=== PATIENT | male | born 1955 | race Caucasian/White ===

== ENCOUNTER 2023-10-06 11:39 | Emergency (ER) | payer MEDICARE, OTHER, SELFPAY ==
[2023-10-06 11:52] VITALS: BP 135/78; PULSE 50; RESP 15; O2SAT 99
[2023-10-06 11:54] VITALS: BP 135/78; PULSE 50; RESP 14; TEMP 36.2; O2SAT 99; BMI 25.8
[2023-10-06 12:00] VITALS: PULSE 50; RESP 14; O2SAT 100
[2023-10-06 12:01] VITALS: BP 132/79; PULSE 51; RESP 15; O2SAT 100
[2023-10-06 12:30] VITALS: PULSE 63; RESP 25
[2023-10-06 12:45] LABS: Add Manual Diff / Slide Review NO; Basophils Absolute Auto 0 /uL (0-100); Basophils Percent Auto 0.5 % (0-2); Eosinophils Absolute Auto 100 /uL (0-450); Eosinophils Percent Auto 0.9 % (2-4); Hemoglobin 14.8 g/dL (13.5-17.5); Lymphocytes Absolute Auto 1300 /uL (1100-4500); Mean Corpuscular HGB Conc 34.4 % (30-36); Mean Corpuscular Volume 93.2 fL (80-100); Monocytes Absolute Auto 400 /uL (0-900); Monocytes Percent Auto 6.6 % (3-14); Neutrophils Absolute Auto 4600 /uL (1500-7000); Platelet Count 188 X10^3/uL (150-400); Red Blood Cell Count 4.61 X10^6/uL (4.5-5.9); Red Cell Distribution Width 12.5 % (11.6-14.8); White Blood Cell Count 6.4 X10^3/uL (4.5-11.0)
--- NOTE | 2023-10-06 12:48 | ED_ITS ---
HPI - Weakness General Chief complaint: Weakness Stated complaint: fall x2, blood in urine Time Seen by Provider: 10/06/23 12:00 Source: patient, family and police Mode of arrival: Wheelchair History of Present Illness HPI Narrative: Patient is a 67-year-old male with advanced dementia currently enrolled in palliative care here with his and son who are caregivers but they also have caregivers in the home presenting today with increasing falls and more screaming. Son stays he has had escalation of behavior and screaming over the last 6 months. Over the last 2 days I noted that maybe he falls more. His right leg is significantly shorter than his left this has been ongoing issue is whole life. He has previously had UTIs. He has been on Keflex in July and looks like amoxicillin in September reports that they never did a urinalysis it was just presumed it a UTI. He has been on risperidone quetiapine other antipsychotics however family does not like the antipsychotics because they make him ?a zombie.They report that he frequently has constipation issues he takes MiraLax daily they say that after he poop sees generally better for a couple of days. It was recommended that they come to the emergency department today because he seems to be limping a little bit more and falling. Patient is currently screaming, family does not want sedating medications given they are sometimes able to redirect him Related Data Previous Rx's Medication Instructions Recorded cephalexin 500 mg capsule 500 mg PO BID 7 days #14 caps 10/06/23 lactulose 10 gram/15 mL oral 10 g (15 mL) PO DAILY PRN 10/06/23 solution constipation #237 mL Allergies Allergy/AdvReac Type Severity Reaction Status Date / Time quetiapine [From Seroquel] AdvReac Severe Numbness Verified 10/06/23 11:59 risperidone AdvReac Severe Numbness Verified 10/06/23 11:59 Patient History Medical History Dementia Social History Smoking Status: Never smoker Smoking Status: Never smoker alcohol intake frequency: 0-2 drinks per day Substance Use Type: does not use Exam Initial Vital Signs Initial Vital Signs: Vital Signs Pulse Rate 50 L 10/06/23 11:52 Respiratory Rate 15 10/06/23 11:52 Blood Pressure 135/78 10/06/23 11:52 Pulse Oximetry 99 10/06/23 11:52 GENERAL: Alert agitated 67-year-old male, intermittently screaming HEENT: Head atraumatic,EOMI, pupils reactive, face symmetric, CARDIOVASCULAR: Peripheral pulses intact RESPIRATORY: No respiratory distress ABDOMEN: Soft, nontender. Normoactive bowel sounds all 4 quadrants. No guarding or rebound. No significant distention EXTREMITIES: Normal range of motion, no clubbing or edema. Neurovascularly intact Right knee small abrasion no gross bony deformity able to stand and ambulate along with weightbear NEUROLOGICAL: Moving all extremities SKIN: Warm, dry, no laceration, no petechiae, no rashes or lesions. Course Orders Ordered: Discontinued Medications Ketorolac Tromethamine (Ketorolac 30 Mg/Ml Vial) 15 mg IV NOW ONE Stop: 10/06/23 13:08 Last Admin: 10/06/23 13:12 Dose: 15 mg Documented By: OW Vital Signs Vital signs: Vital Signs - 8 hr 10/06/23 11:52 10/06/23 11:52 10/06/23 11:54 Temperature 97.1 F L Pulse Rate 50 L 50 L Respiratory Rate 15 14 Blood Pressure 135/78 135/78 Pulse Oximetry 99 99 Oxygen Delivery Method Room Air 10/06/23 12:00 10/06/23 12:01 10/06/23 12:01 Temperature Pulse Rate 50 L 51 L Respiratory Rate 14 15 Blood Pressure 132/79 Pulse Oximetry 100 100 Oxygen Delivery Method Room Air MDM - Weakness Lab Data 10/06/23 12:15 10/06/23 12:15 Labs: Lab Results 10/06/23 10/06/23 Range/Units 12:15 12:35 WBC 6.4 (4.5-11.0) X10^3/uL RBC 4.61 (4.5-5.9) X10^6/uL Hgb 14.8 (13.5-17.5) g/dL Hct 43.0 (41-53) % MCV 93.2 (80-100) fL MCH 32.0 (26-34) PG MCHC 34.4 (30-36) % RDW 12.5 (11.6-14.8) % Plt Count 188 (150-400) X10^3/uL Neut % (Auto) 72.0 (50-75) % Lymph % (Auto) 20.0 L (25-40) % [place] % (Auto) 6.6 (3-14) % Eos % (Auto) 0.9 L (2-4) % Baso % (Auto) 0.5 (0-2) % Neut # (Auto) 4600 (1296-4169) /uL Lymph # (Auto) 1300 (0513-0137) /uL [place] # (Auto) 400 (0-900) /uL Eos # (Auto) 100 (0-450) /uL Baso # (Auto) 0 (0-100) /uL Sodium 140 (137-145) mmol/L Potassium 3.9 (3.4-5.1) mmol/L Chloride 107 (98-107) mmol/L Carbon Dioxide 31 (22-32) mmol/L BUN 15 (9-20) mg/dL Creatinine 0.79 (0.66-1.25) mg/dL Estimated GFR > 60 (>60) mL/min BUN/Creatinine Ratio 19.0 (6-22) Glucose 97 (80-110) mg/dL Calcium 9.2 (8.4-10.2) mg/dL Total Bilirubin 0.7 (0.2-1.3) mg/dL AST 31 (17-59) IU/L ALT 26 (<50) IU/L Alkaline Phosphatase 53 (38-126) U/L Total Protein 6.7 (6.3-8.2) g/dL Albumin 4.0 (3.5-5.0) g/dL Globulin 2.7 (1.7-4.1) g/dL Albumin/Globulin Ratio 1.5 (1.0-2.8) Lipase 146 (23-300) U/L Urine RBC 0-1/hpf (0-5/HPF) Urine WBC 1-5/hpf (0-5/HPF) Ur Squamous Epith Cells 0-1 /hpf (0-5/HPF) Amorphous Sediment 1+ Urine Bacteria Few (2-10) H (None) Urine Mucus 1+ H (Negative) Ur Culture Indicated? Specimen cultured Vol Urine Centrifuged 10ml (spun) Urine Dip Bedside Urine Glucose Negative Bedside Urine Bilirubin - Negative Bedside Urine Ketone - Negative Urine Specific [place] 1.010 Bedside Urine Occult Blood +/- Bedside Urine pH 7.5 Bedside Urine Protein + 30 Bedside Urine Urobilinogen - Negative Bedside Urine Nitrite - Negative Bedside Urine Leukocytes +/- 15 Esterase MDM Narrative Medical decision making narrative: Patient 77-year-old male advanced dementia arm palliative care with caregiver presenting today with increasing falls weakness. Family hesitant to give him any sort of sedation initially had CT and x-rays ordered however not able to do so because of agitation. They understand that there may be explanation or life- threatening cause found but they do not want life-saving interventions, which is very reasonable Patient does have a UTI he has bacteria and leukocytes in his urine he has not septic he has no leukocytes no WALT he is given Toradol in the ED for pain through an IV Discharge Plan Departure Patient Disposition: Home Clinical Impression: Acute UTI Instructions: DI for Urinary Tract Infection (UTI) Activity Restrictions/Additional Instructions: *You have been diagnosed with UTI *What to do: At this time blood work is actually overall reassuring. He does have a minor bladder infection which might be causing some of his problems *Continue to take medications as directed Keflex 500 mg twice a day for 7 days Lactulose daily only if needed for severe constipation *Follow up with your primary care provider in 2-3 days or call [phone] *Return to ER if you should have any new, worsening or concerning symptoms Prescriptions: New cephalexin 500 mg capsule 500 mg PO BID 7 Days Qty: 14 0RF lactulose 10 gram/15 mL solution 10 g PO DAILY PRN (Reason: constipation) Qty: 237 0RF Referrals: Ras Velasquez MD [Primary Care Provider] - Stand Alone Forms: Patient Portal/API
[2023-10-06 13:03] LABS: Alanine Aminotransferase 26 IU/L (<50); Albumin Globulin Ratio 1.5 (1.0-2.8); Alkaline Phosphatase 53 U/L (38-126); Aspartate Aminotransferase 31 IU/L (17-59); Bilirubin Total 0.7 mg/dL (0.2-1.3); Blood Urea Nitrogen 15 mg/dL (9-20); Calcium 9.2 mg/dL (8.4-10.2); Carbon Dioxide 31 mmol/L (22-32); Chloride 107 mmol/L (98-107); Estimated Glomerular Filt Rate > 60 mL/min (>60); Globulin 2.7 g/dL (1.7-4.1); Glucose 97 mg/dL (80-110); HEMOLYSIS 22 (0-50); Lipase 146 U/L (23-300); Potassium 3.9 mmol/L (3.4-5.1); Sodium 140 mmol/L (137-145); Total Protein 6.7 g/dL (6.3-8.2)
[2023-10-06 13:10] LABS: Amorphous Sediment Urine 1+; Bacteria Urine Few (2-10); Culture Indicated Urine Specimen Cultured; Mucus Urine 1+ (Negative); RBC Urine 0-1/HPF (0-5/HPF); Squamous Epithelial Cell Urine 0-1 /HPF (0-5/HPF); Urine Volume 10mL (spun); WBC Urine 1-5/HPF (0-5/HPF)
[2023-10-06] MEDS: KETOROLAC 30 MG/ML VIAL 15 MG IV (13:12)
--- NOTE | 2023-10-06 13:26 | PC.NURSE ---
1300: Pt agitated and allowed to walk around room with one person assist and gait belt. pt will occasionally swat at staff and family. Pt yelling randomly and does not respond to questions about pain or discomfort. Pt only yells and occasionally states one word phrases. Pt's spouse/caregiver reports that this yelling waxes and wanes and will stop for days at a time and then roll picker again for hours. this has been happening for months and the cause is unknown. 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 L knee is bruised from a recent fall. Pt's spouse witnessed fall and it was an assist tog round with no trauma to head or neck.
== END 2023-10-06 13:56 | disposition home or self-care (01) ==
PROVIDERS: Emergency Provider Emergency Medicine; Family Provider Family Medicine; PCP Family Medicine
DX: N39.0 Urinary tract infection, site not specified (principal); F03.90 Unspecified dementia, unspecified severity, without behavioral disturbance, psychotic disturbance, mood disturbance, and anxiety; R29.6 Repeated falls; R10.9 Unspecified abdominal pain
CPT/HCPCS: 36415; 80053; 81003; 81015; 83690; 85025; 87086; 93005; 93010; 96374; 99284; J1885

== ENCOUNTER 2023-12-15 15:52 | Emergency (ER) | payer MEDICARE, OTHER, SELFPAY ==
[2023-12-15 16:09] VITALS: BP 131/79; PULSE 60; RESP 16; TEMP 36.6; O2SAT 98
[2023-12-15 16:34] LABS: Appearance Urine UA CLOUDY; Bilirubin Urine UA 1+ (NEGATIVE); Color Urine UA RED; Glucose Urine UA NEGATIVE (Negative); Ketones Urine UA NEGATIVE (NEGATIVE); Leukocyte Esterase Urine UA TRACE (NEGATIVE); Nitrite Urine UA POSITIVE (Negative); Occult Blood Urine UA 3+ (Negative); Protein Urine UA 3+ (Negative)
[2023-12-15 16:44] LABS: Amorphous Sediment Urine 2+; Bacteria Urine Few (2-10); RBC Urine 10-30/HPF (0-5/HPF); Renal Epithelial Cells Urine 0-1/HPF (0-1/HPF); Squamous Epithelial Cell Urine None Seen (0-5/HPF); Urine Volume 10mL (spun); WBC Urine 5-10/HPF (0-5/HPF)
[2023-12-15 16:46] LABS: Ictotest Urine Negative (Negative)
[2023-12-15 16:47] LABS: Culture Indicated Urine Specimen Cultured
--- NOTE | 2023-12-15 17:47 | ED.MALEGU ---
HPI - Male Genitourinary <Suzanne Sharma PA-C - Last Filed: 12/15/23 17:55> General Chief complaint: Urogenital-Male Stated complaint: Blood in urine Time Seen by Provider: 12/15/23 17:18 Source: patient and family Mode of arrival: Wheelchair History of Present Illness HPI Narrative: 68-year-old male with advanced dementia brought in by and son for hematuria. Patient's states that she saw kellen hematuria. Patient is incontinent of stool and urine at baseline. Patient's states that she has not noted any mental changes, however he has appeared more quiet and tired over the last few days. No vomiting, fever, chills. Related Data Previous Rx's Medication Instructions Recorded lactulose 10 gram/15 mL oral 10 g (15 mL) PO DAILY PRN 10/06/23 solution constipation #237 mL cefpodoxime 100 mg/5 mL oral 200 mg (10 mL) PO Q12H 10 days 12/15/23 suspension #200 mL Allergies Allergy/AdvReac Type Severity Reaction Status Date / Time quetiapine [From Seroquel] AdvReac Severe Numbness Verified 10/06/23 11:59 risperidone AdvReac Severe Numbness Verified 10/06/23 11:59 Review of Systems <Suzanne Sharma PA-C - Last Filed: 12/15/23 17:55> Review of Systems Narrative: Patient has advanced dementia, unable to provide ROS. ROS obtained from patient's . ROS Unobtainable: Unobtainable due to mental condition Patient History <Suzanne Sharma PA-C - Last Filed: 12/15/23 17:55> Medical History Dementia Social History Smoking Status: Never smoker Smoking Status: Never smoker alcohol intake frequency: 0-2 drinks per day Substance Use Type: does not use Exam <Suzanne Sharma PA-C - Last Filed: 12/15/23 17:55> Narrative Exam Narrative: Const General:?cooperative, healthy appearing and comfortable Eyes General:?appearance normal, both eyes and all related structures Neck Neck:?normal visual inspection Resp Effort & Inspection:?normal respiratory effort Auscultation:?clear to auscultation bilaterally Cardio Rate:?regular rate Rhythm:?regular rhythm Neuro General:?patient is awake, walking, agitated due to fear of being in an unknown place due to his dementia Initial Vital Signs Initial Vital Signs: Vital Signs Temperature 97.8 F 12/15/23 16:09 Pulse Rate 60 12/15/23 16:09 Respiratory Rate 16 12/15/23 16:09 Blood Pressure 131/79 12/15/23 16:09 Pulse Oximetry 98 12/15/23 16:09 Oxygen Delivery Method Room Air 12/15/23 16:09 <Lorenza Abraham DO - Last Filed: 12/16/23 07:59> Initial Vital Signs Initial Vital Signs: Vital Signs Temperature 97.8 F 12/15/23 16:09 Pulse Rate 60 12/15/23 16:09 Respiratory Rate 16 12/15/23 16:09 Blood Pressure 131/79 12/15/23 16:09 Pulse Oximetry 98 12/15/23 16:09 Oxygen Delivery Method Room Air 12/15/23 16:09 Course <Suzanne Sharma PA-C - Last Filed: 12/15/23 17:55> Orders Ordered: ED Orders 12/15/23 16:26 Ictotest Urine Stat Urinalysis and Microscopic Stat Urine Culture Stat Vital Signs Vital signs: Vital Signs - 8 hr 12/15/23 16:09 Temperature 97.8 F Pulse Rate 60 Respiratory Rate 16 Blood Pressure 131/79 Pulse Oximetry 98 Oxygen Delivery Method Room Air <Lorenza Abraham DO - Last Filed: 12/16/23 07:59> Orders Ordered: ED Orders 12/15/23 16:26 Ictotest Urine Stat Urinalysis and Microscopic Stat Urine Culture Stat Vital Signs Vital signs: Vital Signs - 8 hr 12/15/23 16:09 Temperature 97.8 F Pulse Rate 60 Respiratory Rate 16 Blood Pressure 131/79 Pulse Oximetry 98 Oxygen Delivery Method Room Air MDM - Male Genitourinary <TUYET Ferguson Last Filed: 12/15/23 17:55> Lab Data Labs: Lab Results 12/15/23 Range/Units 16:26 Urine Color Red Urine Appearance Cloudy Urine pH 7.0 (4.5-8.0) Ur Specific [place] 1.010 (1.000-1.035) Urine Protein 3+ H (Negative) Urine Glucose (UA) Negative (Negative) g/dL Urine Ketones Negative (NEGATIVE) Urine Occult Blood 3+ H (Negative) Urine Nitrate Positive H (Negative) Urine Bilirubin 1+ H (NEGATIVE) Ur Bilirubin Confirm Negative (Negative) Urine Urobilinogen 2.0 H (0.2) E.U./dL Ur Leukocyte Esterase Trace H (NEGATIVE) Urine RBC 10-30/hpf H (0-5/HPF) Urine WBC 5-10/hpf H (0-5/HPF) Ur Squamous Epith Cells None seen (0-5/HPF) Ur Renal Epithelial Cell 0-1/hpf (0-1/HPF) Amorphous Sediment 2+ Urine Bacteria Few (2-10) H (None) Ur Culture Indicated? Specimen cultured Vol Urine Centrifuged 10ml (spun) MDM Narrative Medical decision making narrative: 68-year-old male with advanced dementia brought in by and son for hematuria. Urine is positive for nitrates, RBC, WBC, leukocyte esterase. Will treat with antibiotics. We will send sample for culture. Recommend follow-up with PCP and urologist as soon as possible. Recommend good hydration. ED return precautions discussed with patient's and son. Medical records reviewed: Yes <Lorenza Abraham, - Last Filed: 12/16/23 07:59> Lab Data Labs: Lab Results 12/15/23 Range/Units 16:26 Urine Color Red Urine Appearance Cloudy Urine pH 7.0 (4.5-8.0) Ur Specific [place] 1.010 (1.000-1.035) Urine Protein 3+ H (Negative) Urine Glucose (UA) Negative (Negative) g/dL Urine Ketones Negative (NEGATIVE) Urine Occult Blood 3+ H (Negative) Urine Nitrate Positive H (Negative) Urine Bilirubin 1+ H (NEGATIVE) Ur Bilirubin Confirm Negative (Negative) Urine Urobilinogen 2.0 H (0.2) E.U./dL Ur Leukocyte Esterase Trace H (NEGATIVE) Urine RBC 10-30/hpf H (0-5/HPF) Urine WBC 5-10/hpf H (0-5/HPF) Ur Squamous Epith Cells None seen (0-5/HPF) Ur Renal Epithelial Cell 0-1/hpf (0-1/HPF) Amorphous Sediment 2+ Urine Bacteria Few (2-10) H (None) Ur Culture Indicated? Specimen cultured Vol Urine Centrifuged 10ml (spun) Discharge Plan Departure Patient Disposition: Home Clinical Impression: Urinary tract infection Instructions: DI for Urinary Tract Infection (UTI) Activity Restrictions/Additional Instructions: You were evaluated in the ED today for blood in the urine. Your urine did show a urinary tract infection for which you are being prescribed an antibiotic. Please take that as prescribed. Please follow-up with your PCP and urologist as soon as possible. Return to the ED if you have worsening symptoms, fever, chills, uncontrollable vomiting. Prescriptions: New cefpodoxime 100 mg/5 mL suspension for reconstitution 200 mg PO Q12H 10 Days Qty: 200 0RF No Action lactulose 10 gram/15 mL solution 10 g PO DAILY PRN (Reason: constipation) Qty: 237 0RF Referrals: Trish Nieto MD [Primary Care Provider] - Stand Alone Forms: Patient Portal/API ED Sign-out <Lorenza Abraham DO - Last Filed: 12/16/23 07:59> Cosign ED Attending Taraature Attestation: I was immediately available in the department for consultation.
== END 2023-12-15 18:02 | disposition home or self-care (01) ==
PROVIDERS: Emergency Medicine; Emergency Provider Student in an Organized Health Care Education/Training Program; Family Provider Family Medicine; PCP Family Medicine
DX: N39.0 Urinary tract infection, site not specified (principal)
CPT/HCPCS: 81001; 87086; 99281; 99283